=== PATIENT | female | born 1965 | race Caucasian/White ===

== ENCOUNTER 2019-02-23 14:12 | Emergency (ER) | payer BC ==
[2019-02-23] MEDS ORDERED: Sodium Chloride 0.9% 10 ML Syringe FLUSH PRN (14:22)
[2019-02-23] MEDS ORDERED: methylPREDNISolone Sod Succ 1,000 MG in Dextrose 5% in Water 100 ML IV ONE ×4 (14:23→15:00)
--- NOTE | 2019-02-23 14:28 | EDM.PDOC ---
ED HPI GENERAL MEDICAL PROBLEM - General Chief Complaint: General Stated Complaint: MS FLARE UP Time Seen by Provider: 02/23/19 14:35 Source of Information: Reports: Patient History Limitations: Reports: No Limitations - History of Present Illness INITIAL COMMENTS - FREE TEXT/NARRATIVE: Bernadette sommers 53-year-old female presents to the [facility] ER for MS exacerbation. Patient was diagnosed with relapsing remitting MS approximately 4 years ago. 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 After diagnosed patient realized some of her vague neurologic symptoms represented MS flares for number of years. Patient was on Copaxone MS medication for approximately 3 years. Patient continued to have new lesions despite that medication. She was changed over to a new MS medication, Ocrevus, approximately 2 months ago. Unfortunately difficulties obtaining medications from the specialty pharmacy, she has been without any MS medications for the last 5 weeks. Patient has chronic right leg symptoms which waxes and wanes. Patient noticed increased symptoms in right leg including more intense Muscle fasciculations. Patient noted symptoms in involving her left foot in a stocking distribution over the last 2 days. Patient contacted her son whom encouraged her to present to ER. Symptoms involving her left side are new for her. Patient has had multiple MRIs for staging and evaluating her MS flares (majority of symptoms are minimal and not noticed by patient). Patient is not talked to her MS specialist, neurologist, regarding her recent flare and presentation today. Patient has had a cough with known chronic sinusitis which she treats with OTC symptomatic treatment. She denies urinary symptoms. - Related Data Allergies Allergy/AdvReac Type Severity Reaction Status Date / Time No Known Allergies Allergy Verified 02/23/19 14:26 Home Meds: Home Meds Baclofen 10 mg PO DAILY 02/23/19 [History] Doxycycline [Vibramycin] 100 mg PO DAILY 10 Days #20 cap 02/23/19 [Rx] Gabapentin [Neurontin] 300 mg PO BEDTIME 02/23/19 [History] predniSONE [Prednisone] 1,000 mg PO DAILY 5 Days #100 tablet 02/23/19 [Rx] ED ROS GENERAL - Review of Systems Review Of Systems: ROS reveals no pertinent complaints other than HPI. ED EXAM, GENERAL - Physical Exam Exam: See Below Exam Limited By: No Limitations General Appearance: Alert, WD/WN, No Apparent Distress Eye Exam: Bilateral Eye: EOMI, PERRL Ears: Normal External Exam Nose: Normal Inspection, Normal Mucosa Throat/Mouth: Normal Inspection, Normal Lips, Normal Voice, No Airway Compromise Head: Normocephalic Neck: Normal Inspection, Supple, Non-Tender, Full Range of Motion Respiratory/Chest: No Respiratory Distress Cardiovascular: Normal Peripheral Pulses, Regular Rate, Rhythm, No Edema GI/Abdominal: Normal Bowel Sounds, Soft, Non-Tender Back Exam: Normal Inspection, Full Range of Motion, NT Extremities: Normal Inspection, Normal Range of Motion, Non-Tender, Normal Capillary Refill, No Pedal Edema Neurological: Alert, Oriented, CN II-XII Intact, Normal Cognition, Normal Gait. No: No Motor/Sensory Deficits Psychiatric: Normal Affect, Normal Mood Skin Exam: Warm, Dry, Intact, Normal Color, No Rash Course - Vital Signs Last Recorded V/S: Last Vital Signs Temp 37.2 C 02/23/19 14:28 Pulse 80 02/23/19 14:28 Resp 16 02/23/19 14:28 BP 177/103 H 02/23/19 14:28 Pulse Ox 97 02/23/19 14:28 - Orders/Labs/Meds Orders: Active Orders 24 hr Category Date Time Status Peripheral IV Care [RC] . DIRECTED Care 02/23/19 14:22 Active Vital Signs [RC] PFP Care 02/23/19 15:28 Active Sodium Chloride 0.9% [Saline Flush] Med 02/23/19 14:22 Active 10 ml FLUSH ASDIRECTED PRN Peripheral IV Insertion Adult [OM.PC] Urgent Oth 02/23/19 14:22 Ordered Medication Orders Sodium Chloride (Saline Flush) 10 ml FLUSH ASDIRECTED PRN PRN Reason: Keep Vein Open Last Admin: 02/23/19 14:41 Dose: 10 ml Labs: Laboratory Tests 02/23/19 Range/Units 15:05 Urine Color Yellow Urine Appearance Clear Urine pH 5.0 (4.5-8.0) Ur Specific [place] 1.010 (1.008-1.030) Urine Protein Negative (NEGATIVE) mg/dL Urine Glucose (UA) Normal (NEGATIVE) mg/dL Urine Ketones Negative (NEGATIVE) mg/dL Urine Occult Blood Negative (NEGATIVE) Urine Nitrite Negative (NEGATIVE) Urine Bilirubin Negative (NEGATIVE) Urine Urobilinogen Normal (NORMAL) mg/dL Ur Leukocyte Esterase Negative (NEGATIVE) Urine RBC 0-5 (0-5) Urine WBC 0-5 (0-5) Ur Epithelial Cells Few Amorphous Sediment Rare Urine Bacteria Not seen Urine Mucus Not seen Meds: Medications Generic Name Dose Route Start Last Admin Trade Name Danette PRN Reason Stop Dose Admin Sodium Chloride 10 ml 02/23/19 14:22 02/23/19 14:41 Saline Flush FLUSH 10 ml ASDIRECTED PRN Administration Keep Vein Open Discontinued Medications Generic Name Dose Route Start Last Admin Trade Name Danette PRN Reason Stop Dose Admin Methylprednisolone Sodium 100 mls @ 100 mls/hr 02/23/19 15:00 02/23/19 15:31 Succinate 1,000 mg/ Dextrose/ IV 02/23/19 15:59 100 mls/hr Water ONETIME ONE Administration - Radiology Interpretation Free Text/Narrative:: CXR PA/LAT: Slight haziness over right heart border (vascular/soft tissue overlap vs subtle infiltrate. No acute cardiopulmonary findings noted. Hardware in neck. Images read by myself during ER visit. Radiology Report: Reviewed and copy given to patient during ER visit. - Re-Assessments/Exams Free Text/Narrative Re-Assessment/Exam: UPDATE REVIEWED: Acute attacks of MS are usually treated with glucocorticoids [3 ]. Three to seven day courses of intravenous methylprednisolone, 500 to 1000 mg daily, with or without a short prednisone taper, are used most commonly [4,5]. An alternative is a three to seven day course of oral prednisone, 625 to 1250 mg daily, with or without a short taper. Oral dosing requires many tablets (eg, up to 20 tablets daily of prednisone 50 mg tablets to reach a dose of 1000 mg) but some patients prefer oral therapy rather than intravenous therapy, as the latter requires an intravenous line and sitting still for a few hours while the medication is infused. I explained to patient that I would like to obtain a CXR and Urine to ensure acute/active infections before offering high dose Steroids recommended. 02/23/19 14:28 Departure - Departure Time of Disposition: 16:36 Disposition: Home, Self-Care 01 Clinical Impression: Multiple sclerosis, Acute relapsing multiple sclerosis, Elevated blood pressure reading, Atypical pneumonia - Discharge Information Prescriptions: Doxycycline [Vibramycin] 100 mg PO DAILY 10 Days #20 cap predniSONE [Prednisone] 1,000 mg PO DAILY 5 Days #100 tablet Instructions: How to Take Your Blood Pressure, [id number], Preventing Hypertension, Multiple Sclerosis, Community-Acquired Pneumonia, Adult, Easy-to- Read Referrals: PCP,None [Primary Care Provider] - Forms: ED Department Discharge Additional Instructions: 1. Doxycycline 100mg BID x 10 days for subtle CXR findings for CAP. 2. Prednisone 1,000mg daily x 5 days, contact MS Neurologist about tapering doses. 3. Return to ER if fever, symptoms worsen or new concerns. 4. MRI was not available at time of ER visit today. Please contact Neurologist regarding MRI recommendations. 5. MRI may be available this week Saturday am if needed, please return to ER for discussion. 6. Contact MS, Neurologist about treatment recommendations and update regarding difficulty obtaining MS medication. - My Orders Last 24 Hours: My Active Orders 02/23/19 14:22 Peripheral IV Care [RC] . DIRECTED Sodium Chloride 0.9% [Saline Flush] 10 ml FLUSH ASDIRECTED PRN Peripheral IV Insertion Adult [OM.PC] Urgent 02/23/19 15:28 Vital Signs [RC] PFP - Assessment/Plan Last 24 Hours: My Active Orders 02/23/19 14:22 Peripheral IV Care [RC] . DIRECTED Sodium Chloride 0.9% [Saline Flush] 10 ml FLUSH ASDIRECTED PRN Peripheral IV Insertion Adult [OM.PC] Urgent 02/23/19 15:28 Vital Signs [RC] PFP
--- NOTE | 2019-02-23 15:43 | CR ---
CHEST: 2 view CLINICAL HISTORY:Fever and cough COMPARISON:None FINDINGS: Heart size and pulmonary vascularity are normal. There is some patchy density in the right middle lobe with some ill-definition of the right heart margin. Some of this may also be due to pectus deformity. There is some minimal patchy density in the lateral image. There is no effusion Impression: Probable right middle lobe infiltrate. Some density and ill-definition the heart margin is due to pectus deformity.
== END 2019-02-23 16:52 | disposition home or self-care (01) ==
LOC: JP.ED 14:12
DX: J18.9 Pneumonia, unspecified organism (principal); G35 Multiple sclerosis; Z79.899 Other long term (current) drug therapy
CPT/HCPCS: 71046; 81001; 96365; 99284; J2930; J7060